=== PATIENT | male | born 1955 | race Caucasian/White ===

== ENCOUNTER 2017-04-17 07:12 | Day surgery (SDC) | payer OTHER ==
[~2017-04-17 07:12] MED LIST: Lactated Ringers 1,000 ML IV SCH
[2017-04-17] MEDS ORDERED: Propofol 200 MG/20 ML SDV ONE (07:33)
[2017-04-17] MEDS ORDERED: Lidocaine 2% 5 ML SDV ONE (07:33)
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
--- NOTE | 2017-04-17 08:59 | PCM.OPNOTE ---
- General Post-Op/Procedure Note Date of Surgery/Procedure: 04/17/17 Operative Procedure(s): Colonoscopy Pre Op Diagnosis: Desire for colorectal cancer screening Post-Op Diagnosis: No evidence of neoplasia Anesthesia Technique: MAC Primary Surgeon: Demetrius Osorio Condition: Good Free Text/Narrative:: Dictation [id number] CPT CODE 30069
[2017-04-17] MEDS ORDERED: Lactated Ringers 1,000 ML IV SCH (09:00)
--- NOTE | 2017-04-17 09:21 | PCM.POSTAN ---
POST ANESTHESIA ASSESSMENT - MENTAL STATUS Mental Status: Alert, Oriented - RESPIRATORY Respiratory Status: Respiratory Rate WNL, Airway Patent, O2 Saturation Stable - CARDIOVASCULAR CV Status: Pulse Rate WNL, Blood Pressure Stable - GASTROINTESTINAL GI Status: No Symptoms - POST OP HYDRATION Hydration Status: Adequate & Stable
--- NOTE | 2017-04-17 09:22 | PCM48HPAN ---
Post Anesthesia Note - EVALUATION WITHIN 48HRS OF ANESTHETIC Vital Signs in Normal Range: Yes Patient Participated in Evaluation: Yes Respiratory Function Stable: Yes Airway Patent: Yes Cardiovascular Function Stable: Yes Hydration Status Stable: Yes Pain Control Satisfactory: Yes Nausea and Vomiting Control Satisfactory: Yes Mental Status Recovered: Yes
[2017-04-17 09:26] VITALS: BP 103/63
--- NOTE | 2017-04-17 10:22 | OR ---
SURGEON: Demetrius Osorio M.D. DATE OF PROCEDURE: 04/17/2017 OPERATION PERFORMED: Colonoscopy. ANESTHESIA: MAC. ASA CLASSIFICATION: II. PREOPERATIVE DIAGNOSIS: Desire for colorectal cancer screening. POSTOPERATIVE DIAGNOSIS: No evidence of neoplasia. DESCRIPTION OF PROCEDURE: The patient was taken to the endoscopy room, positioned on the endoscopy table in the left lateral decubitus position. Time-out was called for appropriate identification of the patient and procedure. Monitored anesthesia care was provided. The colonoscope was inserted into the rectum and advanced without difficulty to the cecum, where the colonoscope was retroflexed to visualize the ascending colon from below. The colonoscope was then straightened and slowly withdrawn. The cecum, ascending colon, hepatic flexure, transverse colon, splenic flexure, descending colon, sigmoid colon, and rectum were very well visualized. No tumors, polyps, diverticula, or angiodysplastic changes were noted anywhere throughout the lower gastrointestinal tract. Once the colonoscope was withdrawn to the rectum, it was retroflexed to visualize the anal orifice from above. Again, no tumors or polyps were seen, and there were no acute hemorrhoidal changes. The colonoscope was then straightened, the rectum aspirated, and the colonoscope removed. The patient tolerated the procedure well and was taken to recovery room in satisfactory condition. NGYUEN / NICOLAS /[id number]
== END 2017-04-17 09:30 | disposition home or self-care (01) ==
LOC: MW.SDS 07:12
PROVIDERS: ATTEND Surgery
DX: Z12.11 Encounter for screening for malignant neoplasm of colon (principal); F17.210 Nicotine dependence, cigarettes, uncomplicated; I73.9 Peripheral vascular disease, unspecified; E78.00 Pure hypercholesterolemia, unspecified; Z88.8 Allergy status to other drugs, medicaments and biological substances; Z91.030 Bee allergy status; Z79.02 Long term (current) use of antithrombotics/antiplatelets; Z79.82 Long term (current) use of aspirin; Z79.899 Other long term (current) drug therapy; Z98.890 Other specified postprocedural states; Z83.79 Family history of other diseases of the digestive system
CPT/HCPCS: 45378; J7120; 00810; J2704

== ENCOUNTER 2019-04-01 16:26 | Emergency (ER) | payer OTHER ==
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
[2019-04-01 17:36] VITALS: BP 138/78; PULSE 56
== END 2019-04-01 17:43 | disposition home or self-care (01) ==
LOC: MW.ED 16:26
DX: T63.441A Toxic effect of venom of bees, accidental (unintentional), initial encounter (principal); E78.00 Pure hypercholesterolemia, unspecified; M19.90 Unspecified osteoarthritis, unspecified site; F17.210 Nicotine dependence, cigarettes, uncomplicated; Z88.8 Allergy status to other drugs, medicaments and biological substances; Z91.030 Bee allergy status; Z79.82 Long term (current) use of aspirin; Z79.02 Long term (current) use of antithrombotics/antiplatelets; Z79.899 Other long term (current) drug therapy
CPT/HCPCS: 99282

== ENCOUNTER 2021-01-16 08:10 | Day surgery (SDC) | payer OTHER ==
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
[~2021-01-16 08:10] MED LIST changes: +Glycopyrrolate 0.2 MG/ML SDV ONE; +Propofol 200 MG/20 ML SDV ONE
--- NOTE | 2021-01-16 10:10 | PCM48HPAN ---
Post Anesthesia Note - EVALUATION WITHIN 48HRS OF ANESTHETIC Vital Signs in Normal Range: Yes Patient Participated in Evaluation: Yes Respiratory Function Stable: Yes Airway Patent: Yes Cardiovascular Function Stable: Yes Hydration Status Stable: Yes Pain Control Satisfactory: Yes Nausea and Vomiting Control Satisfactory: Yes Mental Status Recovered: Yes Vital Signs: Last Vital Signs Temp 36.5 C 01/16/21 08:24 Pulse 65 01/16/21 08:24 Resp 16 01/16/21 08:24 BP 133/75 01/16/21 08:24 Pulse Ox 98 01/16/21 08:24
--- NOTE | 2021-01-16 10:10 | PCM.POSTAN ---
POST ANESTHESIA ASSESSMENT - MENTAL STATUS Mental Status: Alert, Oriented - VITAL SIGNS Vital Signs: Last Vital Signs Temp 36.5 C 01/16/21 08:24 Pulse 65 01/16/21 08:24 Resp 16 01/16/21 08:24 BP 133/75 01/16/21 08:24 Pulse Ox 98 01/16/21 08:24 - RESPIRATORY Respiratory Status: Respiratory Rate WNL, Airway Patent, O2 Saturation Stable - CARDIOVASCULAR CV Status: Pulse Rate WNL, Blood Pressure Stable - GASTROINTESTINAL GI Status: No Symptoms - POST OP HYDRATION Hydration Status: Adequate & Stable
--- NOTE | 2021-01-16 10:27 | PCM.OPNOTE ---
- General Post-Op/Procedure Note Date of Surgery/Procedure: 01/16/21 Operative Procedure(s): colonoscopy. EGD with biopsies Findings: Gastritis and duodenitis irregular GE Junction Normal colonoscopy dictation number [id number] Pre Op Diagnosis: Anemia Post-Op Diagnosis: Gastritis and duodenitis. irregular GE Junction. Normal colonoscopy Primary Surgeon: Willi Roldan Pathology: Biopsies from EGD Complications: None Condition: Good Free Text/Narrative:: Intake & Output 01/15/21 01/16/21 01/16/21 22:59 06:59 14:59 Intake Total 1150 Balance 1150
[2021-01-16 10:39] VITALS: BP 137/63; PULSE 55
--- NOTE | 2021-01-16 15:13 | OR ---
SURGEON: MC AGRAWAL MD DATE OF PROCEDURE: 01/16/2021 PREOPERATIVE DIAGNOSIS: Anemia. POSTOPERATIVE DIAGNOSES: 1. Some minimal gastritis and duodenitis. 2. Slightly irregular gastroesophageal junction. 3. Normal colonoscopy. PRIMARY SURGEON: Mc Agrawal MD PROCEDURES PERFORMED: 1. Esophagogastroduodenoscopy with biopsies. 2. Colonoscopy. BOWEL PREP: Excellent. LIMITATIONS: None. EXTENT OF THE COLONOSCOPY: To the cecum. EXTENT OF THE EGD: To the second part of the duodenum. REASON FOR PROCEDURE: The patient is a pleasant 65-year-old gentleman who was referred for anemia. His last colonoscopy was three years ago that he reports was normal. He denies any blood in his stool. He has never had an EGD. He denies any GERD or swallowing issues. PROCEDURE IN DETAIL: Physical exam was performed. The major risks and benefits associated with the procedure were explained to the patient in detail. The patient verbalized understanding and was in agreement with the same. The patient was then connected to the appropriate monitoring devices, and IV was started. EKG, pulse oximetry, blood pressure, and capnography were monitored throughout the entire procedure. Oxygen and sedation were provided by the anesthesiologist. The patient was placed in left lateral decubitus position. Sedation was began. After adequate sedation was achieved, the upper endoscope was advanced under direct visualization without difficulty into the upper GI tract. The mucosa of the esophagus, GE junction, stomach, pylorus, and at least the second part of duodenum were inspected. The second part of the duodenum appeared normal, but more toward the first part, the bulb of the duodenum looked like it was slightly irritated with some minimal duodenitis. Some biopsies were taken. The scope was brought back up to the antrum. Both retro and antegrade views were done. The patient again had some minimal gastritis more toward the antral area. I did do biopsies of the antral and pylorus area to check for H pylori. Scope was brought back to the GE junction. GE junction was approximately 44 cm from the incisor, slightly irregular GE junction. I did several biopsies of this area. The scope was brought into the stomach. Stomach was desufflated. Scope was brought up to the esophagus. Esophagus was normal. Scope was completely removed and this part of the procedure was terminated. Gloves and scope were changed. Rectal examination was done. No rectal masses or polyps were felt. Now, a well- lubricated Olympus colonoscope was inserted into the rectum and advanced under direct visualization to the level of the cecum. Cecum was identified by both visual and anatomic landmarks. Photographs were taken of the cecal cap. The scope was then slowly withdrawn in a circular fashion looking at the color, texture, anatomy, and integrity of mucosa from the cecum to the anal canal. The patient did have an excellent bowel prep. There was very minimal residual prep which was irrigated out for a good look at the mucosa. No polyps or lesions were seen. Scope was slowly withdrawn. The scope was retroflexed in the rectum. Scope was completely removed and the procedure was terminated. ENDOSCOPIC DIAGNOSES: 1. Some minimal gastritis and duodenitis. 2. Slightly irregular gastroesophageal junction. 3. Normal colonoscopy. RECOMMENDATIONS: Followup colonoscopy in 10 years or sooner if he develops signs and symptoms such as change in bowel habits or blood in the stool. The patient should follow up in the clinic to go over his EGD. He did have some minimal gastritis and duodenitis. I do not think this is the cause of his anemia, though no stigmata of any active bleeding, but may benefit from taking PPIs for a short course. ROSA / NICOLAS /[id number]
== END 2021-01-16 10:50 | disposition home or self-care (01) ==
LOC: MW.SDS 08:10
PROVIDERS: ATTEND Surgery
DX: D64.9 Anemia, unspecified (principal); K20.90 Esophagitis, unspecified without bleeding; K29.90 Gastroduodenitis, unspecified, without bleeding; K22.8 Other specified diseases of esophagus; F17.210 Nicotine dependence, cigarettes, uncomplicated; E78.00 Pure hypercholesterolemia, unspecified; Z88.8 Allergy status to other drugs, medicaments and biological substances; Z91.030 Bee allergy status; Z79.82 Long term (current) use of aspirin; Z79.899 Other long term (current) drug therapy; Z98.890 Other specified postprocedural states
CPT/HCPCS: 43239; 45378; 88305; 88342; J2704; J3490; J7120; 00813

== ENCOUNTER 2022-03-07 13:58 | Emergency (ER) | payer OTHER, MEDICARE ==
[2022-03-07] MEDS ORDERED: Aspirin 81 MG Tab.Chew PO ONE (14:19)
[2022-03-07] MEDS ORDERED: Sodium Chloride 0.9% 2.5 ML Syringe FLUSH PRN (14:19)
[2022-03-07] MEDS ORDERED: Sodium Chloride 0.9% 1,000 ML IV ONE (14:19)
[2022-03-07] MEDS ORDERED: Sodium Chloride 0.9% 10 ML Syringe FLUSH PRN (14:19)
[2022-03-07 14:59] LABS: CARBON DIOXIDE,CO2 26.1 mmol/L (21.0-32.0); POTASSIUM,K 3.8 mmol/L (3.5-5.1)
== END 2022-03-07 18:19 | disposition home or self-care (01) ==
LOC: MW.ED 13:58 → MERGE 13:58 → MW.ED 18:19
DX: T63.441A Toxic effect of venom of bees, accidental (unintentional), initial encounter (principal); R07.89 Other chest pain; E78.00 Pure hypercholesterolemia, unspecified; Z91.030 Bee allergy status; Z88.8 Allergy status to other drugs, medicaments and biological substances; Z79.82 Long term (current) use of aspirin; Z79.02 Long term (current) use of antithrombotics/antiplatelets; Z79.899 Other long term (current) drug therapy; Z20.822 Contact with and (suspected) exposure to COVID-19
CPT/HCPCS: 36415; 71045; 80053; 84484; 85025; 87635; 93005; 96360; 99285; J7030; 93010; U0002

== ENCOUNTER 2024-10-17 08:18 | Emergency (ER) | payer OTHER, MEDICARE | END 2024-10-17 10:51 | disposition home or self-care (01) | LOC: MW.ED 08:18 | DX: S63.502A Unspecified sprain of left wrist, initial encounter (principal); E78.00 Pure hypercholesterolemia, unspecified; F17.210 Nicotine dependence, cigarettes, uncomplicated; Z91.030 Bee allergy status; Z88.8 Allergy status to other drugs, medicaments and biological substances; Z79.82 Long term (current) use of aspirin; Z79.899 Other long term (current) drug therapy; Z86.16 Personal history of COVID-19; W18.39XA Other fall on same level, initial encounter; Y93.89 Activity, other specified | CPT/HCPCS: 73110-26-LT; 73110-LT; 99282; 99283 ==